=== PATIENT | male | born 1975 | race Hispanic/Latino ===

== ENCOUNTER 2019-09-11 23:00 | Emergency (ER) | payer OTHER ==
[2019-09-11 23:22] LABS: BASOPHILS % (AUTO) 0.4 % (0.0-5.0); EOSINOPHILS % (AUTO) 2.5 % (0.0-8.0); HEMATOCRIT 42.7 % (42-54); LYMPHOCYTES % (AUTO) 28.1 % (21.0-51.0); MEAN CORPUSCULAR HEMOGLOBIN 31.2 pg (27.0-33.0); MEAN CORPUSCULAR HGB CONC 33.5 g/dL (32.0-36.0); MEAN CORPUSCULAR VOLUME 93.2 fL (79-99); MONOCYTES % (AUTO) 10.5 % (3.0-13.0); NEUTROPHILS % (AUTO) 58.2 % (40.0-77.0); PLATELET COUNT (AUTO) 224 K/uL (130-400); RED BLOOD CELL COUNT(AUTO) 4.58 MIL/uL (4.50-6.20); RED CELL DISTRIBUTION WIDTH 12.6 % (11.0-15.5); WHITE BLOOD COUNT (AUTO) 9.1 K/uL (4.8-10.8)
[2019-09-11] MEDS ORDERED: ASPIRIN 325 MG TABLET ONE (23:25)
[2019-09-11 23:30] LABS: POTASSIUM 3.8 mmol/L (3.5-5.1)
[2019-09-11 23:35] LABS: ALBUMIN 3.6 g/dL (3.5-5.0); BILIRUBIN,TOTAL 0.2 mg/dL (0.2-1.0); TOTAL PROTEIN, SERUM 6.6 g/dL (6.0-8.3)
[2019-09-11 23:39] LABS: INR 0.92 (0.85-1.15); PARTIAL THROMBOPLASTIN TIME 28.8 SEC (26.3-35.5)
[2019-09-12] MEDS ORDERED: NITROGLYCERIN 0.4 MG SL TAB SL ONE (00:53)
== END 2019-09-12 02:38 | disposition home or self-care (01) ==
LOC: EDH 23:00
DX: R07.89 Other chest pain (principal); E11.9 Type 2 diabetes mellitus without complications; Z72.0 Tobacco use
CPT/HCPCS: 36415; 71045; 80053; 82550; 84484; 85025; 85610; 85730; 93005

== ENCOUNTER 2020-01-12 16:39 | Emergency (ER) | payer SELFPAY ==
[2020-01-12] MEDS ORDERED: KETOROLAC TROMETHAMINE 60 MG/2 ML VIAL ONE (17:22)
== END 2020-01-12 17:39 | disposition home or self-care (01) ==
LOC: EDH 16:39
DX: S80.12XA Contusion of left lower leg, initial encounter (principal); E11.9 Type 2 diabetes mellitus without complications; I10 Essential (primary) hypertension; M19.90 Unspecified osteoarthritis, unspecified site; Z79.899 Other long term (current) drug therapy; W01.0XXA Fall on same level from slipping, tripping and stumbling without subsequent striking against object, initial encounter; Y93.89 Activity, other specified; Y92.89 Other specified places as the place of occurrence of the external cause; Y99.8 Other external cause status
CPT/HCPCS: 73590; 96372; 99283; J1885

== ENCOUNTER 2020-10-13 21:50 | Emergency (ER) | payer SELFPAY ==
[~2020-10-13] VITALS: Ht 167.6 cm; Wt 106.6 kg
[2020-10-13 21:55] VITALS: BP 119/79
[2020-10-14] MEDS ORDERED: NACL 0.9% 1000ML 1,000 ML IV ONE (00:15)
[2020-10-14] MEDS ORDERED: KETOROLAC 30MG VIAL (30MG/ML) IV ONE (00:15)
[2020-10-14 00:36] LABS: BASOPHILS % (AUTO) 0.8 % (0.0-5.0); EOSINOPHILS % (AUTO) 1.7 % (0.0-8.0); HEMATOCRIT 44.3 % (42-54); MEAN CORPUSCULAR HEMOGLOBIN 31.4 pg (27.0-33.0); MEAN CORPUSCULAR HGB CONC 34.1 g/dL (32.0-36.0); MEAN CORPUSCULAR VOLUME 92.1 fL (79-99); MONOCYTES % (AUTO) 7.7 % (3.0-13.0); NEUTROPHILS % (AUTO) 61.4 % (40.0-77.0); PLATELET COUNT (AUTO) 217 K/uL (130-400); RED BLOOD CELL COUNT(AUTO) 4.81 MIL/uL (4.50-6.20); RED CELL DISTRIBUTION WIDTH 12.4 % (11.0-15.5); WHITE BLOOD COUNT (AUTO) 8.3 K/uL (4.8-10.8)
[2020-10-14 00:40] LABS: ALBUMIN 3.6 g/dL (3.5-5.0); BILIRUBIN,TOTAL 0.3 mg/dL (0.2-1.0); CREATININE 0.9 mg/dL (0.5-1.5); POTASSIUM 3.7 mmol/L (3.5-5.1); TOTAL PROTEIN, SERUM 7.1 g/dL (6.0-8.3)
[2020-10-14 01:01] LABS: APPEARANCE,URINE Clear (CLEAR); BILIRUBIN,URINE Negative (NEGATIVE); COLOR,URINE Yellow (YELLOW); GLUCOSE, URINE (UA) >=1000 mg/dL (NEGATIVE); KETONES,URINE Trace mg/dL (NEGATIVE); LEUKOCYTE ESTERASE ,URINE Negative (NEGATIVE); NITRATE,URINE Negative (NEGATIVE); OCCULT BLOOD,URINE Negative (NEGATIVE); PROTEIN,URINE POS 2+ mg/dL (NEGATIVE); UROBILINOGEN,URINE 0.2 mg/dL (0.2-1.0)
[2020-10-14 01:39] LABS: RBC,URINE None Seen /HPF (0-1)
[2020-10-14 01:40] LABS: BACTERIA,URINE Rare /HPF (None Seen); SQUAMOUS EPITHELIAL CELL,UR 0-2 /HPF (0-2)
[2020-10-14] MEDS ORDERED: CEFTRIAXONE 1G VIAL IVP SCH (02:00)
[2020-10-14] MEDS ORDERED: KETOROLAC 30MG VIAL (30MG/ML) ONE (02:28)
[2020-10-14] MEDS ORDERED: CIPR-278 PO (02:32)
[2020-10-14] MEDS ORDERED: MELO7.5T12 PO (02:32)
== END 2020-10-14 03:24 | disposition home or self-care (01) ==
LOC: EDH 21:50
DX: N50.3 Cyst of epididymis (principal); I86.1 Scrotal varices; R82.71 Bacteriuria; E11.9 Type 2 diabetes mellitus without complications; I10 Essential (primary) hypertension; Z79.1 Long term (current) use of non-steroidal anti-inflammatories (NSAID)
CPT/HCPCS: 36415; 76870; 80053; 81001; 85025; 87088; 96361; 96374; 96375; 99284; J0696; J1885